=== PATIENT | female | born 1945 | race Caucasian/White ===

== ENCOUNTER 2023-03-16 11:32 | Day surgery (SDC) | payer MEDICARE, OTHER ==
[~2023-03-16] VITALS: Ht 152.4 cm; Wt 58.0 kg
[2023-03-16] VITALS (7 sets, daily range): BP systolic 93–126; BP diastolic 47–78
[~2023-03-16 11:32] MED LIST: ALEN70 PO; CALGLU500 PO; CARB50 PO; DIAZ2 PO; ESTROVEN; FERSU220EL PO; FERSU300 PO; GLUC500 PO; OMEP10ER PO; RXCYCL10 PO; VENL150ER PO; VITAMIN D3 ORAL
--- NOTE | 2023-03-16 13:11 | NUR ---
PT BACK TO RECOVERY ROOM. PT ALERT AND ORIENTED. SITTING UP IN RECLINER. PT GIVEN ICE WATER. VSS. PT DEMONSTRATES UNDERSTANDING OF R RADIAL PRECAUTIONS.
--- NOTE | 2023-03-16 13:15 | NUR ---
ASSUMED CARE OF PATIENT AT THIS TIME. R RADIAL SITE WITH TR BAND FULLY INFALTED, C/D/I SOFT/NONTENDER, NO EVIDENCE OF HEMATOMA. PATIENT DENYING ANY CP. VSS ON RA. PATIENT SITTING UPRIGHT IN RECLINER, TOLERATING PO INTAKE WELL.
--- NOTE | 2023-03-16 14:00 | NUR ---
INITIAL 3 CC OF AIR REMOVED FROM R RADIAL TR BAND. SITE C/D/I. SOFT/NONTENDER, NO EVIDENCE OF HEMATOMA. VSS ON RA
--- NOTE | 2023-03-16 14:46 | NUR ---
ALL AIR REMOVED FROM R RADIAL TR BAND. SITE C/D/I SOFT/NONTENDER, NO EVIDENCE OF HEMATOMA. VSS ON RA
--- NOTE | 2023-03-16 15:03 | NUR ---
DISCHARGE INSTRUCTIONS REVIEWED WITH PATIENT. ALL QUESTIONS WERE ANSWERED
--- NOTE | 2023-03-16 15:15 | NUR ---
PATIENT DISCHARGED HOME AT THIS TIME. ALL PATIENT BELONGINGS AND PAPERWORK LEFT WITH PATIENT. R RADIAL TR BAND REMOVED, SITE C/D/I CLOTH DOT APPLIED ALONG WITH ARM BOARD. PATIENT INSTRUCTED ON RADIAL SITE CARE. PIV REMOVED WITHOUT DIFFICULTY, CATHETER INTACT. PATIENT WHEELED TO HOSPITAL ENTRANCE AND SPOUSE ABLE TO PROVIDE TRANSPORTATION HOME.
== END 2023-03-16 15:15 | disposition home or self-care (01) ==
LOC: MHTC 11:32
DX: I35.0 Nonrheumatic aortic (valve) stenosis (principal); R06.09 Other forms of dyspnea; E78.5 Hyperlipidemia, unspecified; M81.0 Age-related osteoporosis without current pathological fracture; F32.9 Major depressive disorder, single episode, unspecified
CPT/HCPCS: 93454; 99152; C1769; C1887; C1894; J1644; J2250; J3010; J7030; J7050; Q9967

== ENCOUNTER 2023-08-13 05:47 | Emergency (ER) | payer MEDICARE, OTHER ==
[~2023-08-13] VITALS: Ht 152.4 cm; Wt 58.1 kg
[2023-08-13] MEDS ORDERED: PLAVIX75 MG PO (06:30)
[2023-08-13] MEDS ORDERED: LIPITOR80 MG PO (06:30)
[2023-08-13] MEDS ORDERED: ASPI81CH PO (06:30)
[2023-08-13] MEDS ORDERED: Acetaminophen 325 MG TABLET PO ONE (07:55)
[2023-08-13 08:00] VITALS: BP 127/66
[2023-08-13] MEDS ORDERED: RX Prepack 6 Tabs Oxycodone 5mg UD ONE (08:00)
== END 2023-08-13 08:09 | disposition home or self-care (01) ==
LOC: ER 05:47
DX: S70.02XA Contusion of left hip, initial encounter (principal); S50.02XA Contusion of left elbow, initial encounter; S60.212A Contusion of left wrist, initial encounter; Z95.2 Presence of prosthetic heart valve; Z79.02 Long term (current) use of antithrombotics/antiplatelets; Z88.4 Allergy status to anesthetic agent; Z88.5 Allergy status to narcotic agent; W10.9XXA Fall (on) (from) unspecified stairs and steps, initial encounter
CPT/HCPCS: 73502; 99283-25; A9270

== ENCOUNTER 2024-05-21 10:59 | Day surgery (SDC) | payer MEDICARE, OTHER ==
[~2024-05-21] VITALS: Ht 152.4 cm; Wt 57.5 kg
[~2024-05-21 10:59] MED LIST changes: +ASPI81CH PO; +LIPITOR80 MG PO; +NS 500 ML IV ONE; +PLAVIX75 MG PO
[2024-05-21] MEDS ORDERED: NS 500 ML IV ONE (11:28)
[2024-05-21] MEDS ORDERED: CeFAZolin Sodium 2,000 MG VIAL ONE (11:37)
--- NOTE | 2024-05-21 11:41 | NUR ---
05/21/24 1141 Viola Kendrick T/O DONE AT BEDSIDE AT [address] ROY IMMEDIATELY PRIOR TO INJECTION OF 5ML OF SOLUTION CONSISTING OF 9ML 1% LIDOCAINE WITH EPI [id number] AND 1ML 8.4% SODIUM BICARBONATE. PT TOLERATED INJECTION WELL WITHOUT ANY NOTED DIFFICULTIES.
[2024-05-21] MEDS ORDERED: propofoL 20 ML IV ONE (12:36)
[2024-05-21] MEDS ORDERED: FentaNYL Citrate 50 MCG/ML 2 ML Injection ONE (12:38)
[2024-05-21 13:09] VITALS: BP 131/84
== END 2024-05-21 13:35 | disposition home or self-care (01) ==
LOC: ORSCSDS 10:59
PROVIDERS: Orthopaedic Surgery
PROC: 0LB80ZZ Excision of Left Hand Tendon, Open Approach (ICD-10-PCS; principal; 2024-05-21 12:30)
DX: M67.442 Ganglion, left hand (principal); E78.5 Hyperlipidemia, unspecified; F41.9 Anxiety disorder, unspecified; F32.A Depression, unspecified; Z87.891 Personal history of nicotine dependence; Z79.82 Long term (current) use of aspirin; Z79.899 Other long term (current) drug therapy; Z86.73 Personal history of transient ischemic attack (TIA), and cerebral infarction without residual deficits
CPT/HCPCS: 88304; J0690; J2704; J3010; J7040